=== PATIENT | male | born 1980 | race Asian ===

== ENCOUNTER 2019-09-20 20:05 | Emergency (ER) | payer BC ==
[~2019-09-20] VITALS: Ht 167.6 cm; Wt 68.1 kg
[2019-09-20 21:18] VITALS: BP 157/89
[2019-09-20] MEDS ORDERED: methylPREDNISolone ACETATE 40 MG/ML VIAL. IM ONE (21:45)
[2019-09-20] MEDS ORDERED: diphenhydrAMINE HCL 25 MG CAPSULE PO ONE (21:45)
--- NOTE | 2019-09-20 22:11 | PHYS DOC ---
Past Medical History Past Medical History: No Pertinent History Past Surgical History: No Surgical History Smoking Status: Never Smoker Alcohol Use: None General Adult EDM: Chief Complaint: INSECT BITE HPI: HPI: Patient is a 39 year old [male patient who presents with bee sting. Patient states he house in the yard, no stung by bee approximately 1945 night prior. States he has since developed some swelling, itching, and some discomfort. States he has not taken any medication other than some Tylenol for yesterday afternoon. States he just continues to itch. Denies any breathing problems. Denies any itching other than isolated to his right flank where his discomfort is. Review of Systems: Review of Systems: Constitutional: Denies fever or chills. [] Eyes: Denies change in visual acuity. [] Respiratory: Denies cough or shortness of breath. [] Cardiovascular: Denies chest pain or edema. [] GI: Denies abdominal pain, nausea, vomiting, bloody stools or diarrhea. [] Musculoskeletal: Denies back pain or joint pain. [] Integument: Denies rash. Complains of swelling to his right flank from bug bite [] Neurologic: Denies headache, focal weakness or sensory changes. [] [] Psychiatric: Denies depression or anxiety. [] Heart Score: Risk Factors: Risk Factors: DM, Current or recent (<one month) smoker, HTN, HLP, family hist ory of CAD, obesity. Risk Scores: Score 0 - 3: 2.5% MACE over next 6 weeks - Discharge Home Score 4 - 6: 20.3% MACE over next 6 weeks - Admit for Clinical Observation Score 7 - 10: 72.7% MACE over next 6 weeks - Early Invasive Strategies Current Medications: Current Medications Medications (Trade) Dose Ordered Sig/Veronica Start Time Stop Time Status Last Admin Dose Admin Diphenhydramine HCl (Benadryl) 25 mg 1X ONCE 09/20/19 21:45 09/20/19 21:46 DC 09/20/19 21:46 25 MG Methylprednisolone Acetate (DEPO-Medrol 40MG VIAL) 40 mg 1X ONCE 09/20/19 21:45 09/20/19 21:46 DC 09/20/19 21:50 40 MG Allergies: Allergies: Allergies Coded Allergies Type Severity Reaction Last Updated Verified No Known Drug Allergies 09/20/19 No Physical Exam: PE: Constitutional: Well developed, well nourished, no acute distress, non-toxic appearance. [] Eyes: PERRLA, EOMI, conjunctiva normal, no discharge. [] Neck: Normal range of motion, no tenderness, supple, no stridor. [] Cardiovascular:Heart rate regular rhythm, no murmur [] Lungs & Thorax: Bilateral breath sounds clear to auscultation [] Abdomen: Bowel sounds normal, soft, no tenderness, no masses, no pulsatile masses. [] Skin: Warm, dry, large area noted to right flank bullseye form with swelling and erythema consistent with insect sting . [] Back: No tenderness, no CVA tenderness. [] Extremities: No tenderness, no cyanosis, no clubbing, ROM intact, no edema. [] Neurologic: Alert and oriented X 3, normal motor function, normal sensory function, no focal deficits noted. [] Psychologic: Affect normal, judgement normal, mood normal. [] Current Patient Data: Vital Signs: Vital Signs Date Time Temp Pulse Resp B/P (MAP) Pulse Ox O2 Delivery O2 Flow Rate FiO2 09/20/19 21:18 98.6 67 16 157/89 (111) 98 Room Air 98.6 EKG: EKG: [] Radiology/Procedures: Radiology/Procedures: [] Course & Med Decision Making: Course & Med Decision Making Pertinent Labs and Imaging studies reviewed. (See chart for details) [] Dragon Disclaimer: Dragon Disclaimer: This electronic medical record was generated, in whole or in part, using a voice recognition dictation system. Departure Departure Impression: Primary Impression: Bee sting Qualified Codes: T63.441A - Toxic effect of venom of bees, accidental (unintentional), initial encounter Disposition: HOME, SELF-CARE Condition: STABLE Referrals: NO PCP (PCP) Patient Instructions: Bee, Wasp, or Hornet Sting Additional Instructions: It is common to have discomfort and swelling like this after a bee sting. You can continue to take some Benadryl which will help with your discomfort. It may make you sleepy, so take it when you are at home. You can find Benadryl [id number], at most pharmacies, grocery stores, or even [employer]. It should be affordable. You may take one 25 mg tablet every 4 hours as needed for the itching. Justicifation of Admission Dx: Justifications for Admission: Justification of Admission Dx: N/A MACO LUCERO APRN Sep 20, 2019 22:11
== END 2019-09-20 22:15 | disposition home or self-care (01) ==
LOC: ER 20:05
DX: T63.441A Toxic effect of venom of bees, accidental (unintentional), initial encounter (principal); R60.0 Localized edema; L29.9 Pruritus, unspecified; Y92.89 Other specified places as the place of occurrence of the external cause
CPT/HCPCS: 96372; 99283; J1030; Q0163